=== PATIENT | female | born 1950 | race Caucasian/White ===

== ENCOUNTER 2018-10-31 08:48 | Day surgery (SDC) | payer MEDICARE ==
[~2018-10-31 08:48] MED LIST: Midazolam 1 MG/ML 2 ML SDV ONE; Propofol 200 MG/20 ML SDV ONE; fentaNYL 100 MCG/2 ML SDV ONE
[2018-10-31] MEDS ORDERED: Lactated Ringers 1,000 ML IV SCH ×2 (09:25→10:45)
--- NOTE | 2018-10-31 15:09 | OR ---
DATE OF PROCEDURE: 10/31/2018 PREOPERATIVE DIAGNOSIS: History of colon polyps. POSTOPERATIVE DIAGNOSES: Diverticulosis, history of colon polyps. PROCEDURE: Colonoscopy to the cecum. SURGEON: Stephane Manuel MD ANESTHESIA: IV anesthesia with monitored anesthesia care. INDICATION: This 67-year-old white female is referred for a colonoscopy. She is receiving colonoscopies every 5 years because at age 51, she had precancerous polyps. Her last one was 5 years ago. I counseled her for the procedure, including risks and alternatives, and she gave her informed consent to proceed. DESCRIPTION OF PROCEDURE: The patient was placed in the left lateral decubitus position. IV anesthesia was administered by the Anesthesia Service. Time-out was held. A rectal exam was performed, which was unremarkable. The flexible video Olympus colonoscope was introduced through her anus, up her rectum, and out her colon all the way to the cecum. En route, we saw a few scattered left-sided diverticula. There was no bleeding or inflammation associated with any of them. Once the cecum was reached, the scope was slowly withdrawn examining the mucosa throughout. No additional mucosal abnormalities were noted. The scope was retroflexed in the rectum with the distal rectum appearing unremarkable. The scope was straightened and removed. She tolerated the procedure well. Stephane Manuel MD /[id number]
== END 2018-10-31 11:25 | disposition home or self-care (01) ==
LOC: JP.SDS 08:48
PROVIDERS: ATTEND Surgery
DX: Z12.11 Encounter for screening for malignant neoplasm of colon (principal); K57.30 Diverticulosis of large intestine without perforation or abscess without bleeding; J45.909 Unspecified asthma, uncomplicated; K21.9 Gastro-esophageal reflux disease without esophagitis; Z86.010 Personal history of colon polyps
CPT/HCPCS: 45378; J2250; J2704; J3010; J7120